=== PATIENT | male | born 1990 | race Two or more races ===

== ENCOUNTER 2016-12-02 09:02 | Emergency (ER) | payer SELFPAY ==
--- NOTE | 2016-12-02 09:52 | ER Document Report ---
ED General - General Chief Complaint: Penile Problem Stated Complaint: STD CHECK Notes: Patient is a 26-year-old male without past medical history who presents with 2- 3 days of intermittent feelings of warmth in his penis. States that this occurs only when he's been sitting down for a long period of time and when he is bored. He denies any dysuria, penile discharge, lesions, testicular tenderness, pain with sexual activity. Nothing improves or worsens his symptoms. He denies a history of similar symptoms in the past. States that he has had unprotected sex with multiple partners. No personal history of STI's in the past. He has not seen a primary care doctor regarding today's concerns. TRAVEL OUTSIDE OF THE [place] IN LAST 30 DAYS: No - Related Data Allergies/Adverse Reactions: No Known Allergies Allergy (Unverified 06/23/16 14:27) Past Medical History - General Information source: Patient - Social History Smoking Status: Never Smoker Frequency of alcohol use: None Drug Abuse: None Lives with: Family Family History: Reviewed & Not Pertinent Patient has suicidal ideation: No Patient has homicidal ideation: No Renal/ Medical History: Denies: Hx Peritoneal Dialysis Surgical Hx: Negative - Immunizations Hx Diphtheria, Pertussis, Tetanus Vaccination: No Review of Systems - Review of Systems Notes: Constitutional: Negative for fever. Cardiovascular: Negative for chest pain. Respiratory: Negative for shortness of breath. Gastrointestinal: Negative for vomiting Musculoskeletal: Negative for back pain. Skin: Negative for rash. Neurological: Negative for weakness or numbness. 10 point ROS negative except as marked above and in HPI. Physical Exam - Vital signs Interpretation: Normal Notes: PHYSICAL EXAMINATION: GENERAL: Well-appearing, well-nourished and in no acute distress. HEAD: Atraumatic, normocephalic. EYES: sclera anicteric, conjunctiva are normal. ENT: Moist mucous membranes. NECK: Normal range of motion LUNGS: Normal work of breathing HEART: 2+ radial pulses bilaterally : No penile lesions, discharge or erythema. No testicular tenderness or epididymal tenderness. Positive cremasteric reflex bilaterally. EXTREMITIES: no pitting or edema. No cyanosis. NEUROLOGICAL: No focal neurological deficits. Moves all extremities spontaneously and on command. PSYCH: Normal mood, normal affect. SKIN: Warm, Dry, normal turgor, no rashes or lesions noted. Course - Re-evaluation Re-evalutation: 12/02/16 09:49 Patient presents with vague symptoms of intermittent, "warmth" to his penis when he sits down for a long period of time. He denies any dysuria, testicular pain, penile lesions or discomfort with sexual activity. Notes that he only feels this way since sitting down for a long period of time and is bored. His history and exam are not consistent with an acute sexual transmitted infection, urinary tract infection, testicular torsion, epididymitis, orchitis, or prostatitis. He will be tested for gonorrhea and chlamydia here in the emergency department and has been encouraged to follow-up as an outpatient for more complete STI testing.At this time will discharge with return precautions and follow-up recommendations. Verbal discharge instructions given a the bedside and opportunity for questions given. Medication warnings reviewed. Patient is in agreement with this plan and has verbalized understanding of return precautions and the need for primary care follow-up in the next 24-72 hours. Discharge - Discharge Clinical Impression: Concern about STD in male without diagnosis Condition: Good Disposition: HOME, SELF-CARE Additional Instructions: You need to use protection every time you have sex. Failure to do so can result in transmission of infections or unintended . You have been tested for gonorrhea Chlamydia today but your symptoms do not suggest this diagnoses at this time. Please return if you develop abdominal pain, fever, persistent vomiting, or any other symptoms that are concerning to you. Please follow-up at the local health department for STI testing. Address: [address] [place] [address] Hours: Mon-Mon 8am-4pm 12p-4p Mon 8a-4p
[2016-12-02 11:55] LABS: CHLAM PCR NOT DETECTED (NOT DETECT)
== END 2016-12-02 09:56 | disposition home or self-care (01) ==
LOC: ER 09:02
DX: Z20.2 Contact with and (suspected) exposure to infections with a predominantly sexual mode of transmission (principal)
CPT/HCPCS: 87491; 87591; 99283

== ENCOUNTER 2017-09-17 18:52 | Emergency (ER) | payer SELFPAY ==
[2017-09-17] MEDS ORDERED: ONDANSETRON 4 MG TAB.RAPDIS PO ONE (20:31)
[2017-09-17] MEDS ORDERED: IBUPROFEN 800 MG TABLET PO ONE (20:31)
--- NOTE | 2017-09-17 20:31 | ER Document Report ---
HPI - HPI Patient complains to provider of: Flulike symptoms Pain Level: 3 Context: Patient is a 27-year-old male presents emergency department complaining of headache, body aches, sinus congestion, cough for the past 5 days. Denies getting a flu vaccine this year. Non-smoker. Has been taking TheraFlu and DayQuil at home. Admits to nausea without vomiting. Otherwise denies any abdominal pain, diarrhea, constipation. Denies any other medical problems denies any allergies. Otherwise healthy male. Past Medical History - Social History Smoking Status: Never Smoker Family History: Reviewed & Not Pertinent Renal/ Medical History: Denies: Hx Peritoneal Dialysis - Immunizations Hx Diphtheria, Pertussis, Tetanus Vaccination: No Vertical Provider Document - CONSTITUTIONAL Agree With Documented VS: Yes Notes: PHYSICAL EXAM GENERAL: Alert, interacts well. HEENT: NCAT, pale conjunctiva, extraocular movements intact, pupils PERRL. external ear normal, no evidence of external auditory canal tenderness, blood/ drainage, cerumen impaction, TM intact without evidence of effusion, bulging, injection, MMM, Uvula midline. Airway patent. No evidence of tonsillar enlargement, peritonsillar abscess, retropharyngeal abscess. LUNGS: Clear to auscultation bilaterally, no wheezes, rales, or rhonchi. No respiratory distress. HEART: Regular rate and rhythm. No murmurs, gallops, or rubs. ABDOMEN: Soft, nondistended, nontender. No guarding, rebound, or rigidity.. Bowel sounds present in all 4 quadrants. EXTREMITIES: Moves all 4 extremities spontaneously. No edema, radial and dorsalis pedis pulses 2/4 bilaterally. No cyanosis. NEUROLOGICAL: Alert and oriented x4. Normal speech. PSYCH: Normal affect, normal mood. SKIN: Warm, dry, normal turgor. No rashes or lesions noted. - INFECTION CONTROL TRAVEL OUTSIDE OF THE [place] IN LAST 30 DAYS: No - RESPIRATORY O2 Sat by Pulse Oximetry: 98 Course - Re-evaluation Re-evalutation: 09/17/17 20:29 Patient is a 27-year-old male is hemodynamically stable, no acute distress and afebrile. Patient presents with cough, vomiting, diarrhea, and fever at home consistent with a diagnosis of influenza. Patient is overall well in appearance , in no acute distress. Lung sounds clear. Able to tolerate oral intake without difficulty here in the emergency department. After risks and benefits conversation with the patient regarding the use of Tamiflu, they have elected to use supportive care without Tamiflu based on concerns about lack of efficacy as well as the side effect profile. At this time will discharge with return precautions and follow-up recommendations. Verbal discharge instructions given a the bedside and opportunity for questions given. Medication warnings reviewed. Patient is in agreement with this plan and has verbalized understanding of return precautions and the need for primary care follow-up in the next 24-72 hours. - Vital Signs Vital signs: Temp Pulse Resp BP Pulse Ox 99.5 F 110 H 19 151/83 H 98 09/17/17 19:05 09/17/17 19:05 09/17/17 19:05 09/17/17 19:05 09/17/17 19:05 Discharge - Discharge Clinical Impression: Flu-like symptoms, Prehypertension Condition: Good Disposition: HOME, SELF-CARE Additional Instructions: You have symptoms consistent with influenza. There is no treatment that is effective for this diagnosis other than supportive care at home. This includes drinking plenty of fluids, using Tylenol or ibuprofen as needed for fever and discomfort, and Zofran as needed for nausea and vomiting. Please follow closely with you primary care physician the next 1-2 days regarding this diagnosis. Return to the emergency department immediately if you began to have persistent vomiting prevents you from being able to keep fluids down for more than 12 hours, you pass out, you began having difficulty breathing, you become confused, or you have any other symptoms that are worrisome to you. Prescriptions: Benzonatate [Tessalon Perles 100 mg Capsule] 100 mg PO ASDIR PRN #40 capsule PRN Reason: Ondansetron [Zofran Odt 4 mg Tablet] 1 - 2 tab PO Q4H PRN #15 tab.rapdis PRN Reason: For Nausea/Vomiting Forms: Elevated Blood Pressure, Return to Work Referrals: BRAYAN SPENCER MD [COMMUNITY BASED STAFF] - Follow up in 1 week
[2017-09-17 20:39] VITALS: BP 119/54
== END 2017-09-17 20:47 | disposition home or self-care (01) ==
LOC: ER 18:52
DX: R09.81 Nasal congestion (principal); R05 Cough; R11.0 Nausea; R03.0 Elevated blood-pressure reading, without diagnosis of hypertension; R51 Headache; R11.2 Nausea with vomiting, unspecified; R19.7 Diarrhea, unspecified; R50.9 Fever, unspecified
CPT/HCPCS: 99283; S0119

== ENCOUNTER 2018-09-06 11:56 | Emergency (ER) | payer SELFPAY ==
[2018-09-06] MEDS ORDERED: PREDNISONE 20 MG TABLET PO ONE (13:22)
[2018-09-06] MEDS ORDERED: IBUPROFEN 800 MG TABLET PO ONE (13:22)
[2018-09-06] MEDS ORDERED: IPRATROPIUM/ALBUTEROL 0.5-2.5 MG/3 ML AMPUL NEB ONE (13:22)
[2018-09-06] MEDS ORDERED: ONDANSETRON 4 MG TAB.RAPDIS PO ONE (13:22)
--- NOTE | 2018-09-06 13:23 | ER Document Report ---
HPI - HPI Patient complains to provider of: Sore throat, cough Time Seen by Provider: 09/06/18 13:11 Onset/Duration: Persistent Quality of pain: Achy Pain Level: 2 Context: Patient presents with a 4-day history of sore throat cough and vomiting x2 after coughing. Patient does complain of congestion. Patient denies any fever. Associated Symptoms: Chills, Nonproductive cough, Vomiting, Rhinnorhea, Sore throat. denies: Fever Exacerbated by: Denies Relieved by: Denies Similar symptoms previously: No Recently seen / treated by doctor: No - ROS ROS below otherwise negative: Yes Systems Reviewed and Negative: Yes All other systems reviewed and negative - CONSTITUTIONAL Constitutional: REPORTS: Chills. DENIES: Fever - EENT EENT: REPORTS: Sore Throat, Nasal Drainage-Clear, Congestion - RESPIRATORY Respiratory: REPORTS: Coughing - GASTROINTESTINAL Gastrointestinal: REPORTS: Patient vomiting. DENIES: Abdominal Pain - DERM Skin Color: Normal Skin Problems: None Past Medical History - General Information source: Patient - Social History Smoking Status: Never Smoker Frequency of alcohol use: None Occupation: [employer] Family History: Reviewed & Not Pertinent - Medical History Medical History: Negative Renal/ Medical History: Denies: Hx Peritoneal Dialysis Surgical Hx: Negative - Immunizations Hx Diphtheria, Pertussis, Tetanus Vaccination: No Vertical Provider Document - CONSTITUTIONAL Agree With Documented VS: Yes Exam Limitations: No Limitations General Appearance: WD/WN, No Apparent Distress - INFECTION CONTROL TRAVEL OUTSIDE OF THE [place] IN LAST 30 DAYS: No - HEENT HEENT: Atraumatic, Normocephalic, Pharyngeal Tenderness. negative: Pharyngeal Exudate, Pharyngeal Erythema - NECK Neck: Normal Inspection, Supple. negative: Lymphadenopathy-Left, Lymphadenopathy-Right - RESPIRATORY Respiratory: No Respiratory Distress, Chest Non-Tender, Wheezing - CARDIOVASCULAR Cardiovascular: Regular Rate, Regular Rhythm, No Murmur - GI/ABDOMEN Gastrointestinal: Abdomen Soft - BACK Back: Normal Inspection - MUSCULOSKELETAL/EXTREMETIES Musculoskeletal/Extremeties: PHILIPPE CARABALLO - NEURO Level of Consciousness: Awake, Alert, Appropriate Motor/Sensory: No Motor Deficit - DERM Integumentary: Warm, Dry, No Rash Course - Vital Signs Vital signs: Temp Pulse Resp BP Pulse Ox 99.1 F 84 18 143/83 H 100 09/06/18 12:25 09/06/18 12:25 09/06/18 12:25 09/06/18 12:25 09/06/18 12:25 Discharge - Discharge Clinical Impression: Viral illness, Sore throat Nausea & vomiting Qualifiers: Vomiting type: unspecified Vomiting Intractability: non-intractable Qualified Code(s): R11.2 - Nausea with vomiting, unspecified Condition: Stable Disposition: HOME, SELF-CARE Instructions: Acetaminophen, Antinausea Medication ([facility]), Viral Syndrome ([facility]), Vomiting ([facility]) Additional Instructions: Return immediately for any new or worsening symptoms Followup with your primary care provider, call tomorrow to make a followup appointment Throat culture is pending, we will call if you need any different treatment Prescriptions: Naproxen [Naprosyn 250 Nmg Tablet] 1 tab PO BID #14 tablet Ondansetron HCl [Zofran 4 mg Tablet] 1 - 2 tab PO Q6 PRN #15 tablet PRN Reason: Forms: Return to Work Referrals: [facility] [Provider Group] - Follow up as needed
--- NOTE | 2018-09-06 14:34 | RADIOLOGY REPORT (SQ) ---
EXAM DESCRIPTION: CHEST 2 VIEWS COMPLETED DATE/TIME: 09/06/2018 2:00 pm REASON FOR STUDY: cough COMPARISON: 11/08/2017 EXAM PARAMETERS: NUMBER OF VIEWS: two views TECHNIQUE: Digital Frontal and Lateral radiographic views of the chest acquired. RADIATION DOSE: NA LIMITATIONS: none FINDINGS: LUNGS AND PLEURA: No opacities, masses or pneumothorax. No pleural effusion. MEDIASTINUM AND HILAR STRUCTURES: No masses or contour abnormalities. HEART AND VASCULAR STRUCTURES: Heart normal size. No evidence for failure. BONES: No acute findings. HARDWARE: None in the chest. OTHER: No other significant finding. IMPRESSION: NO ACUTE RADIOGRAPHIC FINDING IN THE CHEST. TECHNICAL DOCUMENTATION: JOB ID: [id number] [email or web address]- All Rights Reserved Reading location - IP/workstation name: [email or web address]
[2018-09-06 14:55] VITALS: BP 141/85
== END 2018-09-06 14:55 | disposition home or self-care (01) ==
LOC: ER 11:56
DX: J02.9 Acute pharyngitis, unspecified (principal); B34.9 Viral infection, unspecified; R11.2 Nausea with vomiting, unspecified; R05 Cough
CPT/HCPCS: 94640; 99284; 87070; 87880; 71046; S0119; J7512; J7620

== ENCOUNTER → 2020-08-26 | Outpatient (CLI) | payer BC ==
[2020-08-26 10:17] LABS: SPERM MORPHOLOGY SENT TO REFERENC LAB
[2020-08-26 10:55] LABS: SPERM CONCENTRATION 40.4 X10^6/mL (>12.0); TOTAL SPERM COUNT 125.2 X10^6 (>33.0)
[2020-08-26 10:56] LABS: SPERM PROGRESSION 3
== END ==
LOC: LAB 09:55
PROVIDERS: ATTEND Nurse Practitioner Primary Care
DX: N46.9 Male infertility, unspecified (principal)
CPT/HCPCS: 89320